=== PATIENT | female | born 2000 | race Two or more races ===

== ENCOUNTER 2025-03-23 21:22 | Emergency (ER) | payer OTHER, SELFPAY ==
[2025-03-23 21:24] VITALS: BMI 30.9
[2025-03-23 21:39] VITALS: BP 120/81; PULSE 63; RESP 16; TEMP 36.7; O2SAT 98
--- NOTE | 2025-03-23 21:40 | EDNOTE_ITS ---
Nausea/Vomit./Diarrhea-RME/HPI General Chief complaint: Nausea/Vomiting/Diarrhea Stated complaint: NVD ABD PAIN AND REVER Time Seen by Provider: 03/23/25 21:42 Arrival date/time: 03/23/25 21:22 RME / HPI RME / HPI Narrative: See [facility] for Dr. Harris's HPI Documentation. Related Data Previous Rx's ?Medication ?Instructions ?Recorded gentamicin 0.3 % eye drops 2 drop ophthalmic (eye) Q4H #5 mL 04/03/18 ondansetron 4 mg disintegrating 4 mg PO TID PRN nausea and 03/24/25 tablet vomiting 30 days #10 tabs Allergies Allergy/AdvReac Type Severity Reaction Status Date / Time No Known Allergies Allergy Verified 03/23/25 21:29 Review of Systems Review of Systems Systems Reviewed: All systems reviewed, normal except as documented Past Medical History Family History FAMILY HISTORY: Positive Family Respiratory Disorders (aunt- asthma), Family Gastrointestinal Problems (grandmother- GI ), Family Cancer (grandmother- unknown) and Family Surgery (brother- appendix,) ED Exam Narrative Physical exam: See [facility] for Dr. Harris's Physical Exam Documentation. Course Quality Measures none Orders Category Date Time Status Bedside COVID-19 Antigen Test NOW Care 03/23/25 21:[address] abdomen pelvis wo con Stat Exams 03/23/25 21:41 Completed US gall bladder Stat Exams 03/23/25 21:41 Completed US pelvic complete Stat Exams 03/23/25 21:41 Completed Amylase Stat Lab 03/23/25 22:06 Completed Bilirubin,Direct Stat Lab 03/23/25 22:06 Completed CBC Stat Lab 03/23/25 22:06 Completed CMP [Comprehensive Metabolic Panel] Stat Lab 03/23/25 22:06 Completed HCG,Qualitative Serum Stat Lab 03/23/25 22:06 Completed Lipase Stat Lab 03/23/25 22:06 Completed Magnesium Stat Lab 03/23/25 22:06 Completed UA, C/S IF [Urinalysis, C/S if Indicated] Stat Lab 03/23/25 21:42 Completed ACETAMINOPHEN w/COD 300-30 [Tylenol w/Cod #3] Med 03/23/25 21:40 Discontinued 2 tab PO X1 ONE Famotidine [Pepcid] Med 03/23/25 21:40 Discontinued 40 mg PO X1 ONE Ondansetron Odt [Zofran Odt] Med 03/23/25 21:40 Discontinued 4 mg PO X1 ONE Pantoprazole [Protonix] Med 03/23/25 21:40 Discontinued 40 mg PO X1 ONE Vital Signs Vital signs: Vital Signs Temperature 98.1 F 03/23/25 21:39 Pulse Rate 63 03/23/25 21:39 Respiratory Rate 16 03/23/25 21:39 Blood Pressure 120/81 03/23/25 21:39 Pulse Oximetry (%) 98 03/23/25 21:39 Oxygen Delivery Method Room Air 03/23/25 21:39 Nausea/Vomiting/Diarrhea MDM Narrative MDM Narrative:: This section includes all my notes and documentations, including HPI, PE, and ED course. Moy Harris MD HPI: 25 y/o female presents with vomiting and diarrhea and abdominal discomfort for about 40 hours. No other complaints. ROS: All negative except as documented in HPI. Physical Exam: General: Alert and oriented. Eyes: Conjunctivae and lids clear. ENT: No nasal congestion. Neck: Supple. Heart: RRR. Lungs: No respiratory distress. Good air movement. No rhonchi, wheezing, rales. Abdomen: Soft and nontender. Normal bowel sounds. No distension. No rebound or guarding. Back: No CVA tenderness. Skin: Warm and dry. Neuro: Alert and oriented X 3. I reviewed all diagnostic test results: My review of the Abdomen/Pelvis CT report is: No acute findings. My review of the Gall Bladder US report is: NAD. My review of the Pelvis US report is: NAD. Blood tests and urine tests unremarkable. Covid: Negative. At this point, diagnoses include: Stomach Flu Treatment here included: Two Tylenol #3 Oral Pepcid 40 mg Zofran ODT 4 mg Oral Protonix 40 mg She felt much better. Recommended supportive care. Based on my best medical judgment, made decision no further evaluation or treatment indicated at this time. Patient understands and agrees to the discharge instructions customized and printed, see below. Discharge Instructions from Dr. Harris: 1. After evaluation, you have stomach flu.? See attached handout on gastroenteritis. 2. This is caused by virus germs.? And we do not have good medications to kill the virus germs.? But your immune system will fight it off. 3. Your job is to stay hydrated.? Zofran for nausea/vomiting.? Increase oral fluid and maintain clear urine.? If dark or yellow, increase oral fluid. 4. Do not take any medications to stop your diarrhea.? But try to replenish the fluid and electrolytes you are losing. 5. Some good choices are water (but not only water because it will cause electrolyte abnormalities), sports drinks like Gatorade (with less sugar content), coconut water, chicken stock, and other fluid with electrolytes (like Pedialyte). 6. See your private doctor on 03/26/25 if not completely better. 7. Seek immediate medical care with worsening or with any concerns. Moy Harris MD Patient data External records reviewed:: [facility] previous records (Reviewed prior ED records from 04/03/18. Patient was seen for Bacterial conjunctivitis.) Clinical information provided by:: patient Social determinants that could affect healthcare access:: none Patient has the following chronic illnesses:: None reported How is presenting disease/condition affected by chronic disease/condition?: no chronic disease Evaluation data The following diagnostics were reviewed and interpreted by me:: lab results and radiology exam(s) Lab and/or radiology exams considered but not ordered:: None Interpretation Summary: I reviewed all diagnostic test results: My review of the Abdomen/Pelvis CT report is: No acute findings. My review of the Gall Bladder US report is: NAD. My review of the Pelvis US report is: NAD. Blood tests and urine tests unremarkable. Covid: Negative. Medications / Prescriptions Medications / Prescriptions considered but not ordered:: None Medication administrations:: Medication Administration History Discontinued Medications Acetaminophen/Codeine Phosphate (Acetaminophen W/Cod 300-30 Tablet) 2 tab PO X1 ONE Stop: 03/23/25 21:41 Last Admin: 03/23/25 21:49 Dose: 2 tab Documented By: JEANNA Famotidine (Famotidine 20 Mg Tablet) 40 mg PO X1 ONE Stop: 03/23/25 21:41 Last Admin: 03/23/25 21:49 Dose: 40 mg Documented By: JEANNA Ondansetron HCl (Ondansetron Odt 4 Mg Tabrap) 4 mg PO X1 ONE; Protocol Stop: 03/23/25 21:41 Last Admin: 03/23/25 21:50 Dose: 4 mg Documented By: JEANNA Pantoprazole Sodium (Pantoprazole 40 Mg Tablet) 40 mg PO X1 ONE Stop: 03/23/25 21:41 Last Admin: 03/23/25 21:49 Dose: 40 mg Documented By: JEANNA Treatment here included: Two Tylenol #3 Oral Pepcid 40 mg Zofran ODT 4 mg Oral Protonix 40 mg Consultations Consultation(s) initiated? (list below): No Diagnosis Nausea Differential Diagnosis: food poisoning, gastroenteritis, clostridium difficile infection, drug-induced nausea and vomiting and dehydration Most likely diagnosis given after review of the tests above:: Stomach Flu Admission Indicated Admission indicated?: not indicated Explain why admission is indicated or not indicated:: With significant improvement and no condition needing emergent intervention, there was no indication for admission. Admission Request Was there a request for admission?: No Disposition Plan Disposition Plan: Discharge Discharge Attestation Discharge Attestation: The patient and all family members were given an opportunity to ask questions and understood the discharge instructions. Discharge instructions specifically effects, indications for sooner follow up or return to the emergency department, and the expected course of current diagnosis. Patient condition: Stable Discharge Plan Plan Patient Disposition: HOME (Self Care) Prescriptions/Referrals Prescriptions/Med Rec: New ondansetron 4 mg tablet,disintegrating 4 mg PO TID PRN (Reason: nausea and vomiting) 30 Days Qty: 10 0RF No Action gentamicin 0.3 % drops 2 drop OPHTHALMIC Q4H Qty: 5 1RF Referrals: No Primary/Family,Physician [Primary Care Provider] - In 1 week Problem List Clinical Impression: Stomach flu Patient/Caregiver Discharge Instructions Discharge Activity: activity as tolerated Education Materials: ED Gastroenteritis, Viral (Adult) Additional Instructions: Discharge Instructions from Dr. Harris: 1. After evaluation, you have stomach flu.? See attached handout on gastroenteritis. 2. This is caused by virus germs.? And we do not have good medications to kill the virus germs.? But your immune system will fight it off. 3. Your job is to stay hydrated.? Zofran for nausea/vomiting.? Increase oral fluid and maintain clear urine.? If dark or yellow, increase oral fluid. 4. Do not take any medications to stop your diarrhea.? But try to replenish the fluid and electrolytes you are losing. 5. Some good choices are water (but not only water because it will cause electrolyte abnormalities), sports drinks like Gatorade (with less sugar content), coconut water, chicken stock, and other fluid with electrolytes (like Pedialyte). 6. See your private doctor on 03/26/25 if not completely better. 7. Seek immediate medical care with worsening or with any concerns. Print Language: Azeri Stand Alone Forms: Sarah Award Info., Work/School Release, Patient Portal Info Letter
--- NOTE | 2025-03-23 21:41 | XR_ITS ---
Examination: Pelvic ultrasound, transabdominal, complete Technique: Transabdominal ultrasound of the pelvis performed using grayscale imaging Date and time of exam: March 23, 2025, 11:17 p.m. INDICATION: Nausea vomiting pelvic pain beginning 2 days ago FINDINGS: Uterus 8.3 cm no uterine mass or intrauterine gestation Endometrial stripe 0.9 cm Ovaries obscured by bowel gas IMPRESSION: Limited study, no uterine mass or intrauterine gestation
--- NOTE | 2025-03-23 21:41 | XR_ITS ---
Examination: CT abdomen and pelvis without contrast. Coronal 3-D reconstructions. Sagittal 2-D reconstructions. Date and time of exam: March 23, 2025, 11:10 p.m. INDICATIONS: Abdominal pain nausea vomiting beginning 2 weeks ago CTDI: vol (mGy): 12.81 DLP: (mGycm): 723 Technique: Axial images of the abdomen have been obtained, 3 mm slice thickness Intravenous contrast material has not been administered. Low dose protocols were performed. One or more of the following dose reduction techniques were used; automated exposure control, adjustment of the mA and/or KV according to patient size, use of iterative reconstruction technique. Findings: No focal liver or splenic lesions No gallstones No pancreatic or adrenal mass No renal or ureteral calculi, no hydronephrosis Aorta normal size Tiny fat-containing umbilical hernia No pericecal inflammatory changes No bowel obstruction No enteritis or colitis Urinary bladder intact Osseous structures are intact Retroverted uterus IMPRESSION: No acute process in the abdomen or pelvis
--- NOTE | 2025-03-23 21:41 | XR_ITS ---
Examination: Abdomen sonogram, Limited Date and time of exam: March 23, 2025, 11:29 p.m. INDICATIONS: Nausea and vomiting beginning 2 days ago Technique: Real-time kent scale transabdominal sonographic images of the upper abdomen obtained. Findings: Normal gallbladder Normal common bile duct 0.2 cm Pancreatic head 3.5 cm Liver 16.8 cm fatty infiltration Normal hepatopetal portal venous flow Patent IVC IMPRESSION: Normal gallbladder tip Normal common bile duct Mild hepatomegaly fatty protrusion
[2025-03-23] MEDS: FAMOTIDINE 20 MG TABLET 40 MG PO (21:49)
[2025-03-23] MEDS: PANTOPRAZOLE 40 MG TABLET PO (21:49)
[2025-03-23] MEDS: ACETAMINOPHEN w/COD 300-30 TABLET 2 TAB PO (21:49)
[2025-03-23] MEDS: ONDANSETRON ODT 4 MG TABRAP PO (21:50)
[2025-03-23 22:22] LABS: Basophils # (Auto) 0.0 Thou/mm3 (0.0-0.2); Basophils % (Auto) 0 % (0-2.5); Eosinophils # (Auto) 0.3 Thou/mm3 (0.0-0.5); Eosinophils % (Auto) 3 % (0-10); Hematocrit 37.8 % (36.0-46.0); Hemoglobin 11.8 g/dL (12.0-16.0); Immature Granulocytes Auto 0.06 Thou/mm3 (0.00-0.00); Lymphocytes # (Auto) 4.0 Thou/mm3 (1.0-4.8); Lymphocytes % (Auto) 37 % (10-50); Mean Corpuscular HGB Conc 31.2 g/dl (31.0-37.0); Mean Corpuscular Hemoglobin 24.7 pg (25.0-35.0); Mean Corpuscular Volume 79 fL (80-100); Monocytes # (Auto) 0.9 Thou/mm3 (0.0-0.8); Monocytes % (Auto) 8 % (0-12); Neutrophils # (Auto) 5.6 Thou/mm3 (1.8-7.7); Neutrophils % (Auto) 51 % (37-80); Nucleated Red Blood Cell # 0.00 Thou/mm3 (0.00-0.00); Nucleated Red Blood Cell % 0 /100 WBC (0); Platelet Count 310 Thou/mm3 (140-440); RDW Standard Deviation 39.8 fL (36.4-46.3); Red Blood Count 4.77 Miln/mm3 (4.00-5.20); White Blood Count 10.8 Thou/mm3 (3.6-11.0)
[2025-03-23 22:40] LABS: HCG,Qualitative Serum Negative
[2025-03-23 22:49] LABS: Alanine Aminotransferase 17 U/L (10-49); Albumin, Serum 4.4 gm/dL (3.5-5.0); Albumin/Globulin Ratio 1.7 (1.2-2.2); Alkaline Phosphatase 93 U/L (46-116); Amylase 49 U/L (30-118); Anion Gap 9 (7-16); Aspartate Amino Transferase 20 U/L (0-34); BUN/Creatinine Ratio 9 Ratio (12-20); Bilirubin,Direct < 0.1 mg/dL (0.0-0.3); Bilirubin,Total 0.2 mg/dL (0.3-1.2); Blood Urea Nitrogen 7 mg/dL (9-23); Calcium 9.2 mg/dL (8.3-10.6); Calcium (Corrected) 9.2 mg/dL (8.5-10.1); Carbon Dioxide 25.7 mMol/L (20.0-31.0); Chloride 108 mMol/L (98-107); Creatinine (Component) 0.8 mg/dL (0.6-1.3); Estimated Creatinine Clearance 105.4 mL/min (>60); Globulin 2.6 gm/dL (2.3-3.5); Glucose 105 mg/dL (74-106); Lipase 29 U/L (12-53); Magnesium 2.1 mg/dL (1.6-2.6); Osmolality,Calculated 282 (275-295); Potassium 4.0 mMol/L (3.4-5.1); Sodium 143 mMol/L (136-145); Total Protein 7.0 gm/dL (5.7-8.2); eGFR > 60 See Note
[2025-03-23 23:22] LABS: Collection Type, Urine Clean Catch
[2025-03-23 23:29] LABS: Amorphous Crystals,Urine Present (Absent); Bilirubin,Urine Negative (Negative); Blood,Urine Negative (Negative); Budding Yeast,Urine Present; Clarity,Urine Turbid (Clear/Hazy); Color,Urine Lt-Yellow (Lt Yel-Yel); Culture Indicated,Urine Not Indicated; Glucose, Urine Negative (Negative); Ketones,Urine Negative (Negative); Leukocyte Esterase,Urine Negative (Negative); Nitrite,Urine Negative (Negative); PH,Urine 6.5 (5.0-7.0); Protein,Urine Negative (Neg - Trace); RBC,Urine 4 /hpf (0-3); Specific Gravity,Urine 1.023 (1.001-1.035); Squamous Epithelial Cell,Urine 5 /hpf (0-5); Urobilinogen,Urine Negative mg/dL (0.0-1.0); WBC,Urine 4 /hpf (0-5)
== END 2025-03-24 00:29 | disposition home or self-care (01) ==
PROVIDERS: Emergency Provider Emergency Medicine
DX: A08.4 Viral intestinal infection, unspecified (principal)
CPT/HCPCS: 36415; 74176; 76705; 76856; 80053; 81001; 81025; 82150; 82248; 83690; 83735; 84703; 85025; 87502; 87635; 99283; Q0162; A9270